=== PATIENT | male | born 1950 | race Two or more races ===

== ENCOUNTER → 2024-03-23 | Emergency (ER) | payer OTHER ==
[~2024-03-23] VITALS: Ht 180.3 cm; Wt 99.8 kg
[~2024-03-23] MED LIST: GLIPIZIDE XL2.5 MG; GLUMETZA500 MG; LEVOTHYROXINE25 MCG; SIMVASTATIN5 MG; TAMS0.4C; ZESTRIL2.5 MG
== END | disposition left against medical advice (07) ==
LOC: ER 14:28
DX: Z53.21 Procedure and treatment not carried out due to patient leaving prior to being seen by health care provider (principal)